=== PATIENT | male | born 1980 | race Caucasian/White ===

== ENCOUNTER 2017-08-01 12:34 | Emergency (ER) | payer BC ==
[~2017-08-01] VITALS: Ht 188 cm; Wt 104.1 kg
[~2017-08-01 12:34] MED LIST: TRAMADOL HCL50 MG PO
[2017-08-01 14:40] VITALS: BP 119/79
== END 2017-08-01 14:52 | disposition home or self-care (01) ==
LOC: EME 12:34
DX: Z77.098 Contact with and (suspected) exposure to other hazardous, chiefly nonmedicinal, chemicals (principal); H57.8 Other specified disorders of eye and adnexa
CPT/HCPCS: 99281; 99283